=== PATIENT | female | born 1965 | race Caucasian/White ===

== ENCOUNTER 2017-03-13 12:20 | Emergency (ER) | payer OTHER ==
[~2017-03-13] VITALS: Ht 165.1 cm; Wt 78.5 kg
[2017-03-13 12:23] VITALS: Ht 165.1 cm; Wt 78.5 kg
[2017-03-13] MEDS ORDERED: FLUORESCEIN STRIP RIGHT EYE ONE (15:00)
[2017-03-13] MEDS ORDERED: TETRACAINE 0.5% 4 ML OPH RIGHT EYE ONE (15:00)
[2017-03-13] MEDS ORDERED: CPR3OO3.5 RIGHT EYE (16:23)
--- NOTE | 2017-03-13 21:03 | ERD ---
ER Documentation Chief Complaint Date/Time DATE: 03/13/17 TIME: 20:59 Chief Complaint RT EYE PAIN, SENT BY PCP FOR FORIGN BODY HPI This patient is a 51-year-old female with no significant medical history presenting to the emergency department with watery discharge from her right eye which began approximately 1 week ago after cutting weeds in her yard. Patient was sent by her primary care physician because they did not have a Patel lamp in the office. She reports mild vision changes. She does not wear glasses or contacts. The patient denies fevers, chills, or other symptoms at this time. ROS All systems reviewed and are negative except as per history of present illness. Medications Home Meds Active Scripts Ciprofloxacin Opht* (Ciloxan*) 0.3%-3.5 Opht Oint, 1 APPLIC RIGHT EYE QID for 7 Days, #1 BOTTLE Prov:ARSEN PENA PA-C 03/13/17 Allergies Allergies: Coded Allergies: iodine (Verified Allergy, Intermediate, RASH, 03/13/17) PMhx/Soc Medical and Surgical Hx: pt denies Medical Hx, pt denies Surgical Hx Hx Alcohol Use: No Smoking Status: Never smoker FmHx Noncontributory for chief complaint Physical Exam Vitals Vital Signs Date Time Temp Pulse Resp B/P Pulse Ox O2 Delivery O2 Flow Rate FiO2 03/13/17 12:23 99.0 90 18 155/85 97 Physical Exam Const: The patient is resting comfortably in no acute distress. Head: Atraumatic Eyes: There is conjunctival injection with photophobia noted in the right eye. The left eye is normal in appearance. EOMs are intact bilaterally. There is no periorbital edema or erythema noted. ENT: Normal External Ears, Nose and Mouth. Neck: Full range of motion..~ No meningismus. Resp: Clear to auscultation bilaterally Cardio: Regular rate and rhythm, no murmurs Abd: Soft, non tender, non distended. Normal bowel sounds Skin: No petechiae or rashes Back: No midline or flank tenderness Ext: No cyanosis, or edema Neur: Awake and alert Psych: Normal Mood and Affect Results 24 hrs Current Medications Medications (Trade) Dose Ordered Sig/Josephine Route PRN Reason Start Time Stop Time Status Last Admin Dose Admin Fluorescein Sodium (Urrtm-W-Lucwx) 1 strip ONCE ONCE RIGHT EYE 03/13/17 15:00 03/13/17 15:01 DC Tetracaine HCl (Tetracaine 0.5% Steri-Unit Claudia) 2 drop ONCE ONCE RIGHT EYE 03/13/17 15:00 03/13/17 15:01 DC Procedures/MDM 51-year-old female presents to the emergency department for right eye pain. On physical examination there is no gross foreign body. There is no periorbital edema or erythema and I have low suspicion for periorbital cellulitis, orbital cellulitis, globe fracture, or other emergent conditions. Eye Exam w/ slit lamp - bilateral: Visual Acuity: Completed by senior telecommunications technician and showed no significant acute abnormalities or deficits. Visual Bell: Intact in all four quadrants bilaterally Lac ducts/glands: No swelling Lids w/ evertion: Normal, no foreign body Conj/[place]: Clear, increased uptake in the right eye at the 7 o'clock position suspicious for corneal abrasion. Anterior Chamber: Clear Retina exam: No obvious abnormality The primary diagnosis is conjunctivitis. Secondary diagnosis is corneal abrasion. The patient will be discharged home with a prescription for ciprofloxacin drops. This case is discussed with Dr. Jey Gillis, supervising ED physician who evaluated the patient's eye with the slit-lamp and agreed with the clinical examination and ED course. He recommended outpatient management with ciprofloxacin drops. The patient understands the discharge plan and diagnosis. All questions and concerns were addressed. Strict ER return precautions discussed. The patient is to have close follow-up with ophthalmology and her primary care physician. Information was given to do so. Departure Diagnosis: Primary Impression: Conjunctivitis Conjunctivitis type: acute Acute conjunctivitis type: unspecified Laterality: right Qualified Code: H10.31 - Acute conjunctivitis of right eye , unspecified acute conjunctivitis type Additional Impression: Corneal abrasion Encounter type: initial encounter Laterality: right Qualified Code: S05.01XA - Corneal abrasion, right, initial encounter Condition: Fair Patient Instructions: Conjunctivitis Caused by Infection, Corneal Abrasion Referrals: YANY DA SILVA MD, SANJAY MD REINGOLD,REENA Young MD [facility], [facility] YOU HAVE RECEIVED A MEDICAL SCREENING EXAM AND THE RESULTS INDICATE THAT YOU DO NOT HAVE A CONDITION THAT REQUIRES URGENT TREATMENT IN THE EMERGENCY DEPARTMENT. FURTHER EVALUATION AND TREATMENT OF YOUR CONDITION CAN WAIT UNTIL YOU ARE SEEN IN YOUR DOCTORS OFFICE WITHIN THE NEXT 1-2 DAYS. IT IS YOUR RESPONSIBILITY TO [facility] IF YOU HAVE A PRIMARY DOCTOR --you should call your primary doctor and schedule an appointment IF YOU DO NOT HAVE A PRIMARY DOCTOR YOU CAN CALL OUR PHYSICIAN REFERRAL HOTLINE AT IF YOU CAN NOT AFFORD TO SEE A PHYSICIAN YOU CAN CHOSE FROM THE FOLLOWING [facility] [id number] [facility] [address] [facility] [address] [facility] [address] [facility] [address] [facility]. [facility] [address] Additional Instructions: Follow up with your PCP within the next 1-3 days for a more thorough evaluation and a possible referral to ophthalmology. Direct Support Staff referral information provided with her discharge paperwork. Return the the emergency department immediately if symptoms worsen or change. If you have any questions regarding medications, ask your pharmacist or us before you leave. If any adverse reactions, occur while taking your medications, discontinue the treatment and return to the emergency department immediately. If any new or worsening symptoms, uncontrolled fevers, or other unexplained symptoms occur, return to the emergency department immediately. Take your medications as directed, and complete the entire course of treatment. ARSEN PENA PA-C March 13, 2017 21:03
== END 2017-03-13 16:28 | disposition home or self-care (01) ==
LOC: FTE 12:20
DX: H10.31 Unspecified acute conjunctivitis, right eye (principal); S05.01XA Injury of conjunctiva and corneal abrasion without foreign body, right eye, initial encounter; X58.XXXA Exposure to other specified factors, initial encounter; Y92.9 Unspecified place or not applicable
CPT/HCPCS: Z7502; Z7610; 99283